=== PATIENT | male | born 1970 | race Two or more races ===

== ENCOUNTER 2016-06-12 13:10 | Emergency (ER) | payer OTHER ==
--- NOTE | 2016-06-12 14:26 | US ---
VENOUS ULTRASOUND OF EXTREMITY Indications: Snapping sound at work with swelling. Question of DVT. Comparison: None FINDINGS: Multiple grayscale, color-flow and duplex Doppler images during right lower extremity DVT ultrasound are obtained from the common femoral vein down through to the peroneal and posterior tibial veins. DEEP VENOUS THROMBOSIS: None. COMMON FEMORAL VEIN: Normal. PROXIMAL FEMORAL VEIN: Normal. MID TO DISTAL FEMORAL VEIN: Normal. POPLITEAL VEIN: Normal. PROXIMAL CALF VEINS: Normal. Incidental note is made of a fluid collection within the medial posterior calf, along the deep fibers. This is heterogeneous in its echotexture. Findings are worrisome for tear and hematoma. IMPRESSION: No deep venous thrombosis of the right leg. Probable gastrocnemius tear. Findings were called to Dr. Lou at approximately 1420 hours on 06/12/2016.
== END 2016-06-12 15:05 | disposition home or self-care (01) ==
LOC: ED 13:10
DX: S86.111A Strain of other muscle(s) and tendon(s) of posterior muscle group at lower leg level, right leg, initial encounter (principal); I10 Essential (primary) hypertension; Y93.01 Activity, walking, marching and hiking; Y92.89 Other specified places as the place of occurrence of the external cause; Y99.0 Civilian activity done for income or pay